=== PATIENT | male | born 1955 | race Caucasian/White ===

== ENCOUNTER → 2017-11-10 | Outpatient (CLI) | payer MEDICAID ==
--- NOTE | 2017-11-10 10:25 | ECHOS ---
STRESS ECHOCARDIOGRAM INDICATIONS: 62 MEDICATIONS: Toprol, Norvasc, Vasotec, hydralazine, atorvastatin, aspirin. BASELINE HEART RATE: 75 BASELINE BLOOD PRESSURE: 110/60 MAXIMUM HEART RATE: 141 MAXIMUM BLOOD PRESSURE: 184/71 85% MPHR: 133 100% MPHR: 156 METS: 11.1 MAXIMUM STAGE REACHED: 4 TOTAL EXERCISE TIME: 9:30 INDICATION: Chest pain. CLINICAL INFORMATION: Baseline EKG shows sinus rhythm, normal axis, normal intervals. Patient exercised on Joseph protocol for a total of 9.5 minutes achieving 11 METS, 90% of predicted maximal heart rate without chest pain or diagnostic ST-segment depression. Baseline echo shows normal left ventricular size, wall motion systolic function. Post exercise there is normal hyperdynamic response of all segments of myocardium noted. CONCLUSION: 1. Excellent exercise tolerance. 2. Negative stress test by EKG criteria. MMEL / KRISTAN: [id number] /
== END | disposition home or self-care (01) ==
LOC: RADNMMAIN 08:53
PROVIDERS: ATTEND Internal Medicine
DX: R07.9 Chest pain, unspecified (principal); I10 Essential (primary) hypertension
CPT/HCPCS: 93017; 93350

== ENCOUNTER → 2021-06-26 | Outpatient (CLI) | payer MEDICARE ==
--- NOTE | 2021-06-26 12:29 | XR ---
KUB HISTORY: Calculus of ureter, N 20.1 From a KUB submitted on 2 images Calcification identified along the region of the splenic artery. This constellation superimposed of t he left kidney measuring proximately 5 mm. Overlying bowel gas may obscure detail. Ossification in th e left hemipelvis measures approximately 5 mm, constipation right hemipelvis measures roughly 2 to 3 mm. Some degenerative disc changes noted in the visualized spine. No evident bowel obstruction or pne umoperitoneum. Suspect some possible basilar calcifications within the pelvis. IMPRESSION: Left-sided nephrolithiasis. Indeterminate pelvic calcifications.
== END | disposition home or self-care (01) ==
LOC: RADXRMAIN 10:15
PROVIDERS: ATTEND Urology
DX: N20.0 Calculus of kidney (principal)
CPT/HCPCS: 74018

== ENCOUNTER → 2022-01-07 | Outpatient (CLI) | payer MEDICARE | END | disposition home or self-care (01) | LOC: RADUSWWP 09:23 | PROVIDERS: ATTEND Family Medicine | DX: I73.9 Peripheral vascular disease, unspecified (principal) | CPT/HCPCS: 93922 ==

== ENCOUNTER → 2022-01-26 | Outpatient (CLI) | payer MEDICARE ==
--- NOTE | 2022-01-26 13:15 | XR ---
KUB HISTORY: N 20.0 Frontal KUB submitted on 2 images, correlation to prior exam 06/26/2021. Calcifications are again noted within the pelvis. No evident bowel obstruction or pneumoperitoneum. B ones are stable. Overlying bowel gas may obscure underlying detail. There are dense vascular calcific ations present in the splenic artery distribution. IMPRESSION: Nonobstructive bowel gas pattern.
== END | disposition home or self-care (01) ==
LOC: RADXRMAIN 12:11
PROVIDERS: ATTEND Urology
DX: N20.0 Calculus of kidney (principal)
CPT/HCPCS: 74018